=== PATIENT | male | born 1960 | race Caucasian/White ===

== ENCOUNTER 2025-09-12 20:36 | Inpatient (IN) | payer OTHER ==
[~2025-09-12] VITALS: Ht 167.6 cm; Wt 65.6 kg
[2025-09-12] MEDS ORDERED: ONDANSETRON 4 MG/2 ML VIAL ONE (21:29)
[2025-09-12] MEDS ORDERED: PANTOPRAZOLE SODIUM 40 MG VIAL ONE (21:29)
[2025-09-12 21:39] LABS: CREATININE 2.6 mg/dL (0.6-1.3); SODIUM SERUM 141.0 mmol/L (136-145); UREA NITROGEN, BLOOD 23.0 mg/dL (7-18)
[2025-09-12 21:40] LABS: PLATELET COUNT (AUTO) 203 K/uL (152-348); RED BLOOD CELL COUNT(AUTO) 4.83 MIL/uL (4.06-5.63); RED CELL DISTRIBUTION WIDTH 14.7 % (12.1-16.2); WHITE BLOOD COUNT (AUTO) 9.1 K/uL (3.6-10.2)
[2025-09-12] MEDS: PANTOPRAZOLE SODIUM IV 80 MG in IV DEXTROSE 5% 100 ML IV ONE (21:42)
[2025-09-12] MEDS: ONDANSETRON 4 MG/2 ML VIAL IV ONE (21:42)
[2025-09-12] MEDS: IV NORMAL SALINE 1000 ML BAG IV ONE (21:42)
[2025-09-12 21:47] LABS: ASPARTATE AMINOTRANSFERASE 16.0 U/L (15-37); TOTAL PROTEIN, SERUM 6.8 g/dL (6.4-8.2)
[2025-09-12] MEDS ORDERED: HYDROMORPHONE 1 MG/1 ML DISP.SYRIN ONE (22:38)
[2025-09-12] MEDS: HYDROMORPHONE 1 MG/1 ML DISP.SYRIN IV ONE (22:39)
[2025-09-12] MEDS ORDERED: CEFTRIAXONE /D5W 50ML IVPB **ER PYXIS IV ONE (23:44)
[2025-09-13] VITALS (7 sets, daily range): BP systolic 100–124; BP diastolic 55–75; TEMP 97.8–99.8; O2SAT 94–98
[2025-09-13 01:09] LABS: *BILIRUBIN,URIN NEGATIVE (NEGATIVE); *COLOR,URINE LIGHT YELLOW (YELLOW); *KETONES,URINE NEGATIVE (NEGATIVE); *PROTEIN,URINE NEGATIVE (NEGATIVE); *UROBILINOGEN,URINE 0.2 E.U./dl (NORMAL); LEUKOCYTE ESTERASE ,URINE TRACE (NEGATIVE); NITRITE, URINE NEGATIVE (NEGATIVE); UGLUCOSE NEGATIVE (NEGATIVE)
[2025-09-13 01:10] LABS: *BLOOD, URINE TRACE (NEGATIVE); *CLARITY,URINE HAZY (CLEAR)
[2025-09-13] MEDS: IV NORMAL SALINE 1000 ML BAG IV ONE (01:23)
[2025-09-13 01:25] LABS: SQUAMOUS EPITHELIAL CELL,UR MODERATE /HPF (NONE SEEN)
[2025-09-13] MEDS ORDERED: ONDANSETRON 4 MG/2 ML VIAL IV PRN (05:00)
[2025-09-13] MEDS ORDERED: MAGNESIUM HYDROXIDE 30 ML LIQUID UDC PO PRN (05:00)
[2025-09-13] MEDS: PANTOPRAZOLE SODIUM 40 MG VIAL IV SCH (09:02)
[2025-09-13 10:02] LABS: PLATELET COUNT (AUTO) 177 K/uL (152-348); RED BLOOD CELL COUNT(AUTO) 4.44 MIL/uL (4.06-5.63); RED CELL DISTRIBUTION WIDTH 14.2 % (12.1-16.2); WHITE BLOOD COUNT (AUTO) 6.1 K/uL (3.6-10.2)
[2025-09-13 10:14] LABS: CREATININE 2.4 mg/dL (0.6-1.3); SODIUM SERUM 142.0 mmol/L (136-145); UREA NITROGEN, BLOOD 22.0 mg/dL (7-18)
[2025-09-13] MEDS: IV NS 1000 ML 1,000 ML IV PRN (14:38)
[2025-09-13] MEDS: MORPHINE SULFATE 2 MG/1 ML DISP.SYRIN IV PRN (21:15)
[2025-09-14] MEDS: ACETAMINOPHEN 325 MG TABLET PO PRN (00:52)
[2025-09-14] MEDS: diphenhydrAMINE 25 MG CAP PO ONE (00:52)
[2025-09-14] MEDS: FAMOTIDINE 20 MG TABLET PO ONE (01:56)
[2025-09-14 06:20] VITALS: BP 119/76; TEMP 98; O2SAT 92
[2025-09-14 06:40] LABS: PLATELET COUNT (AUTO) 191 K/uL (152-348); RED BLOOD CELL COUNT(AUTO) 4.98 MIL/uL (4.06-5.63); RED CELL DISTRIBUTION WIDTH 14.7 % (12.1-16.2); WHITE BLOOD COUNT (AUTO) 7.8 K/uL (3.6-10.2)
[2025-09-14 06:56] LABS: CREATININE 1.8 mg/dL (0.6-1.3); SODIUM SERUM 140.0 mmol/L (136-145); UREA NITROGEN, BLOOD 19.0 mg/dL (7-18)
[2025-09-14] MEDS: NEUTRA PHOS PACKET PO ONE (10:48)
[2025-09-14] MEDS: TRAMADOL HCL 50 MG TABLET PO PRN (10:49)
[2025-09-14 11:00] VITALS: BP 130/73; TEMP 97.7; O2SAT 96
[2025-09-14 14:45] VITALS: BP 107/67; TEMP 98; O2SAT 96
[2025-09-14 19:00] VITALS: BP 119/62; TEMP 98.6; O2SAT 95
[2025-09-15 05:39] VITALS: BP 119/76; TEMP 97.9; O2SAT 96
[2025-09-15 07:07] LABS: PLATELET COUNT (AUTO) 182 K/uL (152-348); RED BLOOD CELL COUNT(AUTO) 4.28 MIL/uL (4.06-5.63); RED CELL DISTRIBUTION WIDTH 14.3 % (12.1-16.2); WHITE BLOOD COUNT (AUTO) 8.1 K/uL (3.6-10.2)
[2025-09-15 07:22] LABS: CREATININE 1.9 mg/dL (0.6-1.3); SODIUM SERUM 140.0 mmol/L (136-145); UREA NITROGEN, BLOOD 23.0 mg/dL (7-18)
[2025-09-15] MEDS ORDERED: CEPH500C2 PO (10:22)
[2025-09-15] MEDS ORDERED: TRAM50TA2 PO (10:22)
[2025-09-15 11:13] VITALS: BP 120/71; TEMP 97.7; O2SAT 96
== END 2025-09-15 13:40 | disposition home or self-care (01) | DRG 463 ==
LOC: ER 20:36 → TELE3 09-13 00:45 → MEDSURG3 09-13 08:30
PROVIDERS: ADMIT Nurse Practitioner Acute Care; ATTEND Nurse Practitioner Family
DX: N13.6 Pyonephrosis (principal); K92.0 Hematemesis; N17.9 Acute kidney failure, unspecified; N32.9 Bladder disorder, unspecified; R73.9 Hyperglycemia, unspecified; N40.0 Benign prostatic hyperplasia without lower urinary tract symptoms; Z87.442 Personal history of urinary calculi; Z87.891 Personal history of nicotine dependence; E86.9 Volume depletion, unspecified
CPT/HCPCS: 36415; 71045; 83735; 84100; 85025; 85610; 86850; 86900; 86901; 87086; G0378; J0696; J1171; J2270; J2405; J2470; J2919; J7040; Q0163